=== PATIENT | female | born 1975 | race Caucasian/White ===

== ENCOUNTER 2018-04-23 00:59 | Observation (INO) ==
[2018-04-23 01:44] LABS: Bilirubin,Urine Negative (Negative); Blood,Urine Negative (Negative); Clarity,Urine Clear (Clear); Color,Urine Yellow (Yellow); Glucose,Urine (UA) Normal (Normal); Ketones,Urine Negative (Negative); Leukocyte Esterase,Urine Small (Negative); Nitrite,Urine Negative (Negative); Protein,Urine Negative (Neg-Trace); Urobilinogen,Urine Normal (Normal)
[2018-04-23 01:47] LABS: Bacteria,Urine Few per hpf (None-Few); Hyaline Casts,Urine None Seen per lpf (None-Few); RBC,Urine 0-3 per hpf (0-3); Squamous Epithelial Cell,Urine Many per lpf (None-Few)
[2018-04-23 02:02] LABS: Calcium Oxalate Crystals,Urine Present
[2018-04-23 02:05] LABS: Basophils # 0.1 K/mcL (0.0-0.2); Basophils % 0.6 %; Eosinophils # 0.4 K/mcL (0.0-0.6); Eosinophils % 3.4 %; Hemoglobin 12.8 g/dL (11.5-15.4); Immature Granulocytes % 0.3 % (0-4); Lymphocytes # 2.4 K/mcL (0.6-4.6); Lymphocytes % 22.7 %; Mean Corpuscular HGB Conc 32.8 g/dL (31.6-35.5); Mean Corpuscular Hemoglobin 30.5 pg (28.0-33.3); Mean Corpuscular Volume 92.9 fL (83.0-100.0); Mean Platelet Volume 10.5 fL (9.4-12.4); Monocytes # 0.7 K/mcL (0.0-1.3); Monocytes % 6.1 %; Neutrophils # 7.2 K/mcL (1.6-8.9); Platelet Count 226 K/mcL (140-400); Red Cell Distribution Width 13.2 % (11.5-14.5); Segmented Neutrophils % 66.9 %
[2018-04-23] MEDS ORDERED: *HR* Morphine Immed Rel 30 MG TABLET PO STA (02:17)
[2018-04-23 02:26] LABS: BUN/Creatinine Ratio 32 (6-26); Blood Urea Nitrogen 19 mg/dL (6-20); Calcium 8.6 mg/dL (8.6-10.3); Carbon Dioxide 27 mEq/L (23-29); Chloride 106 mEq/L (98-107); Glucose 84 mg/dL (70-105); Osmolality,Calculated 287 (280-300); Potassium 3.8 mEq/L (3.5-5.1); Sodium 138 mEq/L (136-145); eGFR For Non-African Americans > 60 (> 60)
[2018-04-23 02:27] LABS: Troponin I < 0.03 ng/mL (< 0.04)
--- NOTE | 2018-04-23 02:36 | Emergency Department Note ---
Disposition Clinical Impression: Seizure-like activity Syncope Qualifiers: Syncope type: unspecified Qualified Code(s): R55 - Syncope and collapse Disposition: Admitted As Inpatient Condition: Fair Referrals: Sheba Romero CNP [Primary Care Provider] - Forms: ED Satisfaction Letter General Adult HPI - General Chief complaint: ED Syncope Stated complaint: syncope Time Seen by Provider: 04/23/18 01:00 Source: patient Mode of arrival: ambulatory Limitations: no limitations Nursing Notes Reviewed: Yes Vital Signs Reviewed: Yes - History of Present Illness HPI Narrative: 42-year-old female with significant past medical history of anxiety and depression presenting to the emergency department chief complaint a syncopal episode. Patient states today she got up to across the room and felt lightheaded and weak. She leaned on the side of an arm chair and passed out. Family members beside her tried to catch her but she did hit the back of her head on the ground. After she passed out she had what looked like generalized shaking. Patient woke up and had another episode of syncope after. At that time EMS was called. When EMS arrived patient was alert and oriented 3. At this time patient complains of some posterior head pain but no other pain or concerns. Patient denies any chest pain, shortness of breath or abdominal pain. Pain Scale: 4 - Related Data Home Medications Medication Instructions Recorded Confirmed HydrOXYzine 25 mg PO TID PRN 03/21/17 02/02/18 Mv,Calcium,Min/Iron/Folic/Vitk 1 tab PO DAILY 03/21/17 02/02/18 [Optisource Tablet Chewable] Polyethylene Glycol 3350 [MiraLAX] 17 gm PO DAILY PRN 03/21/17 02/02/18 Pregabalin [Lyrica] 225 mg PO BID 03/21/17 02/02/18 clonazePAM [Klonopin] 1 mg PO BID 03/21/17 02/02/18 traZODone [TraZODone] 50 - 100 mg PO HS 03/21/17 02/02/18 Fluticasone Propionate Nasal 50 mcg NS DAILY 02/02/18 02/02/18 [Flonase] Levomilnacipran HCl [Fetzima] 120 mg PO DAILY 02/02/18 02/02/18 Linaclotide [Linzess] 145 mcg PO DAILY 02/02/18 02/02/18 Loratadine [Claritin] 1 tab PO DAILY 02/02/18 02/02/18 Allergies Allergy/AdvReac Type Severity Reaction Status Date / Time bupropion [From Wellbutrin] Allergy Hives Verified 02/02/18 11:11 NSAIDS (Non-Steroidal AdvReac See Verified 09/10/17 21:43 Anti-Inflamma Comments All systems ED: reviewed and negative except as stated. Constitutional: Denies: fever, chills Eyes: Reports: as per HPI ENT ED: Reports: as per HPI Cardiovascular: Denies: chest pain, palpitations, dyspnea on exertion Respiratory: Denies: cough, dyspnea, wheezes Gastrointestinal: Denies: abdominal pain, nausea, vomiting Genitourinary: Reports: as per HPI Musculoskeletal: Reports: as per HPI Integumentary: Reports: as per HPI Neurological: Reports: as per HPI Psychiatric: Reports: as per HPI Endocrine: Reports: as per HPI Hematological/Lymphatic: Reports: as per HPI Allergic/Immunologic: Reports: as per HPI Past Medical History - Past Medical History Attestation: Yes The following information was validated with the patient. Medical history: Reports: arthritis, DVT, fibromyalgia, GERD, other Surgical history: Reports: , sinus surgery, other Psychiatric history: Reports: anxiety, depression HVAC SERVICE TECHNICIAN history: Reports: no HVAC SERVICE TECHNICIAN history, bilateral tubal ligation, other - Social History Smoking Status: Never smoker Smokeless Tobacco Status: No Alcohol use: Reports: none Drug use: Reports: none Physical Exam - General Limitations: no limitations General appearance: alert, in no apparent distress - Head Head exam: atraumatic, normocephalic, other (Tenderness to palpation over the occiput area) - Eye Eye exam: Present: normal appearance, PERRL, EOMI. Absent: scleral icterus, conjunctival injection - ENT ENT exam: normal exam, mucous membranes moist - Neck Neck exam: Present: normal inspection, full ROM. Absent: tenderness, meningismus - Chest Chest inspection: Present: normal inspection, symmetric chest wall rise. Absent: tenderness, rash - Respiratory Respiratory exam: Present: normal lung sounds bilaterally. Absent: respiratory distress, wheezes - Cardiovascular Cardiovascular exam: Present: regular rate, normal rhythm, normal heart sounds - Abdominal Exam Abdominal exam: Present: soft, Non-Tender. Absent: distention, guarding, rebound - Extremities Exam Extremities exam: Present: normal inspection, full ROM - Neurological Exam Neurological exam: Present: alert, oriented X3 - Psychiatric Psychiatric exam: Present: normal affect, normal mood - Skin Skin exam: Present: warm, intact Course Course Narrative: 42-year-old female presenting after a syncopal episode with seizure-like a ctivity afterwards. At this time patient is alert and oriented 3 and hemodynamically stable. Nonfocal neurological exam. Patient states she did recently start taking BuSpar but no other medication changes. Patient denies any history of seizure-like activity. Denies any other symptoms prior to syncope besides feeling weak and dizzy. At this time will perform basic laboratory analysis along with a CT of the head. Disposition pending results. Patient agrees this plan. - Reevaluation(s) Reevaluation #1: Patient's laboratory analysis benign. Urine analysis within normal limits. Due to patient's 2 episodes of syncope and concern for new onset seizure will plan to admit the patient further observation and workup. At this time patient remains alert and oriented 3 and hemodynamically stable. Patient agrees with this plan. I spoke with the hospitalist mass communications professor Dr. Le who agrees to accept the patient at this time. Vital Signs Temperature 98.2 F 04/23/18 01:04 Pulse Rate 73 04/23/18 01:04 Respiratory Rate 15 04/23/18 01:04 Blood Pressure 118/60 04/23/18 01:04 O2 Sat by Pulse Oximetry 100 04/23/18 01:04 Temperature 98.2 F 04/23/18 01:04 Pulse Rate 82 04/23/18 02:54 Respiratory Rate 14 04/23/18 02:54 Blood Pressure 113/95 04/23/18 02:54 O2 Sat by Pulse Oximetry 100 04/23/18 02:54 Oxygen Delivery Oxygen Delivery Room Air Medical Decision Making - Lab Data Result diagrams: 04/23/18 01:50 04/23/18 01:50 Lab Results 04/23/18 04/23/18 04/23/18 Range/Units 01:30 01:30 01:50 WBC 10.7 (4.3-11.1) K/mcL RBC 4.20 (3.82-4.97) M/mcL Hgb 12.8 (11.5-15.4) g/dL Hct 39.0 (35.3-44.9) % MCV 92.9 (83.0-100.0) fL MCH 30.5 (28.0-33.3) pg MCHC 32.8 (31.6-35.5) g/dL RDW 13.2 (11.5-14.5) % Plt Count 226 (140-400) K/mcL MPV 10.5 (9.4-12.4) fL Immature Gran % 0.3 (0-4) % Seg Neutrophils % 66.9 % Lymphocytes % 22.7 % Monocytes % 6.1 % Eosinophils % 3.4 % Basophils % 0.6 % Neutrophils # 7.2 (1.6-8.9) K/mcL Lymphocytes # 2.4 (0.6-4.6) K/mcL Monocytes # 0.7 (0.0-1.3) K/mcL Eosinophils # 0.4 (0.0-0.6) K/mcL Basophils # 0.1 (0.0-0.2) K/mcL Sodium (136-145) mEq/L Potassium (3.5-5.1) mEq/L Chloride (98-107) mEq/L Carbon Dioxide (23-29) mEq/L BUN (6-20) mg/dL Creatinine (0.60-1.20) mg/dL Est GFR ( Amer) (> 60) Est GFR (Non-Af Amer) (> 60) BUN/Creatinine Ratio (6-26) Glucose (70-105) mg/dL POC Glucose (70-99) mg/dL Calculated Osmolality (280-300) Calcium (8.6-10.3) mg/dL Troponin I (< 0.04) ng/mL Urine Color Yellow (Yellow) Urine Clarity Clear (Clear) Urine pH 6.0 (5.0-8.0) pH Units Ur Specific [place] 1.020 (1.010-1.025) Urine Protein Negative (Neg-Trace) mg/dL Urine Glucose (UA) Normal (Normal) mg/dL Urine Ketones Negative (Negative) mg/dL Urine Blood Negative (Negative) Urine Nitrite Negative (Negative) Urine Bilirubin Negative (Negative) Urine Urobilinogen Normal (Normal) mg/dL Ur Leukocyte Esterase Small H (Negative) Urine Microscopic RBC 0-3 (0-3) per hpf Urine Microscopic WBC 5-15 H (0-3) per hpf Ur Squamous Epith Cells Many H (None-Few) per lpf Calcium Oxalate Crystal Present Urine Bacteria Few (None-Few) per hpf Hyaline Casts None Seen (None-Few) per lpf Urine Test Negative (Negative) 04/23/18 04/23/18 Range/Units 01:50 02:24 WBC (4.3-11.1) K/mcL RBC (3.82-4.97) M/mcL Hgb (11.5-15.4) g/dL Hct (35.3-44.9) % MCV (83.0-100.0) fL MCH (28.0-33.3) pg MCHC (31.6-35.5) g/dL RDW (11.5-14.5) % Plt Count (140-400) K/mcL MPV (9.4-12.4) fL Immature Gran % (0-4) % Seg Neutrophils % % Lymphocytes % % Monocytes % % Eosinophils % % Basophils % % Neutrophils # (1.6-8.9) K/mcL Lymphocytes # (0.6-4.6) K/mcL Monocytes # (0.0-1.3) K/mcL Eosinophils # (0.0-0.6) K/mcL Basophils # (0.0-0.2) K/mcL Sodium 138 (136-145) mEq/L Potassium 3.8 (3.5-5.1) mEq/L Chloride 106 (98-107) mEq/L Carbon Dioxide 27 (23-29) mEq/L BUN 19 (6-20) mg/dL Creatinine 0.59 L (0.60-1.20) mg/dL Est GFR ( Amer) > 60 (> 60) Est GFR (Non-Af Amer) > 60 (> 60) BUN/Creatinine Ratio 32 H (6-26) Glucose 84 (70-105) mg/dL POC Glucose 74 (70-99) mg/dL Calculated Osmolality 287 (280-300) Calcium 8.6 (8.6-10.3) mg/dL Troponin I < 0.03 (< 0.04) ng/mL Urine Color (Yellow) Urine Clarity (Clear) Urine pH (5.0-8.0) pH Units Ur Specific [place] (1.010-1.025) Urine Protein (Neg-Trace) mg/dL Urine Glucose (UA) (Normal) mg/dL Urine Ketones (Negative) mg/dL Urine Blood (Negative) Urine Nitrite (Negative) Urine Bilirubin (Negative) Urine Urobilinogen (Normal) mg/dL Ur Leukocyte Esterase (Negative) Urine Microscopic RBC (0-3) per hpf Urine Microscopic WBC (0-3) per hpf Ur Squamous Epith Cells (None-Few) per lpf Calcium Oxalate Crystal Urine Bacteria (None-Few) per hpf Hyaline Casts (None-Few) per lpf Urine Test (Negative) - EKG Data EKG #1 EKG attestation: Yes I reviewed and interpreted this EKG. EKG results narrative: Sinus rhythm. 72 beats for minute. GA interval 165, QRS 129, QTC 464. No sign of acute ST segment elevation or ischemia. Compared to previous EKG completed on 03/25/2009 no significant changes noted
--- NOTE | 2018-04-23 03:08 | Internal Med History&Physical ---
<Sherin Albarran N - Last Filed: 04/23/18 05:38> Date of Encounter: 04/23/18 Time of Encounter: 03:08 Internal Medicine - H&P: HPI Chief complaint: Syncope Admitted From: Emergency Dept History of present illness: Ms. 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 Presented to the ED via EMS after a witnessed syncopal episode. Patient states that she does not recall this incident; however, it was witnessed by multiple family members. Patient states that she stood up and became dizzy, so she grabbed the arm of a chair. After doing so, she reportedly passed out, and began convulsing in what her family described as "seizure-like" activity. Reportedly fell and hit her head during this syncopal episode. Patient reports that family members stated she was unresponsive immediately after the incident. She estimates that she does not remember approximately 5 minutes including the time immediately before, during, and immediately after this event. Patient reportedly had a second syncopal episode immediately after attempting to get up from the first. Patient reports experiencing dizzy spells associated with tunnel vision and lightheadedness, during which she sometimes feels like she is going to pass out. She states that these have been occurring for approximately 6 weeks, and says they are occurring with increasing frequency. She also reports noticing frequent headaches over this same period of time, and has noted worsening diplopia and blurred vision. She does have a history of migraine headaches; however, she sta radha that the headaches that she has been experiencing recently are different, and are not associated with photophobia. She states that these dizzy episodes are triggered more frequently with changes in position, though they do occur sometimes while she is at rest. She also reports feeling generally weaker recently. With the exception of a double ear and sinus infection approximately one month ago, patient denies any recent illnesses. Her only new medication is buspirone, which she again taking approximately 1 month ago. Patient was seen and evaluated at the bedside while in the emergency department. She denied any acute complaints or concerns at that time. Patient stated to ED staff that she did not feel safe going on due to concerns for repeat syncope. She was admitted to the hospitalist service for observation and further workup of her dizzy spells and recent syncope. Past Med Surg Social Fam HX - Past Medical History Medical history: arthritis, DVT, fibromyalgia, GERD, other Additional medical history: chronic back pain. chronic headaches. hypermobility-type Court[place] Psychiatric history: anxiety, depression - Past Surgical History Surgical History: , sinus surgery, other, bariatric surgery Additional surgical history: left wrist x 3. gastric bypass. l ctr. r ctr. t&a - Social History Smoking Status: Never smoker Smokeless Tobacco Status: No Alcohol use: none Drug use: none - Family History Mother Age: 73 Living Status: Still Living Hx Family Cardiac Disorders: Yes (TIA, HTN) Hx Family Respiratory Disorders: Yes (COPD) Hx Family Endocrine Disorder: Yes (hypothyroidism) Hx Family Musculoskeletal Disorders: Yes (osteoporsis) Hx Family Neurologic Disorders: Yes (Dementia) Hx Family Psychosocial Disorders: Yes (depression and anxiety) Father Living Status: Age at : 56 Cause of : suicide Hx Family Psychosocial Disorders: Yes (PTSD) Brother Hx Family Psychosocial Disorders: Yes (depression) Internal Medicine - H&P: Meds Mv,Calcium,Min/Iron/Folic/Vitk [Optisource Tablet Chewable] 1 tab PO DAILY 03/21/17 [History] Pregabalin [Lyrica] 225 mg PO BID 03/21/17 [History] RX: HydrOXYzine 25 mg PO TID PRN 03/21/17 [History] RX: Polyethylene Glycol 3350 [MiraLAX] 17 gm PO DAILY PRN 03/21/17 [History] RX: clonazePAM [Klonopin] 1 mg PO BID 03/21/17 [History] RX: traZODone [TraZODone] 50 - 100 mg PO HS 03/21/17 [History] Fluticasone Propionate Nasal [Flonase] 50 mcg NS DAILY 02/02/18 [History] Levomilnacipran HCl [Fetzima] 120 mg PO DAILY 02/02/18 [History] Linaclotide [Linzess] 145 mcg PO DAILY 02/02/18 [History] RX: Loratadine [Claritin] 1 tab PO DAILY 02/02/18 [History] Allergy/AdvReac Type Severity Reaction Status Date / Time bupropion [From Wellbutrin] Allergy Hives Verified 02/02/18 11:11 NSAIDS (Non-Steroidal AdvReac See Verified 09/10/17 21:43 Anti-Inflamma Comments All Systems PM: A 10-system review of systems was performed and is negative for pertinent findings except as documented above in the HPI. - EENT Eyes: as per HPI, blurry vision, change in vision, diplopia, tunnel vision Ears: no tinnitus Nose, mouth and throat: no post-nasal drip, no sinus pain, no sinus pressure - Cardiovascular Cardiovascular ROS IM: syncope, no chest pain, no dyspnea, no palpitations - Respiratory Respiratory: no cough, no dyspnea on exertion, no wheezing, no chest congestion - Gastrointestinal Gastrointestinal: constipation, diarrhea, dyspepsia, heartburn, nausea, no change in bowel habits, no vomiting - Genitourinary Genitourinary: dysuria, urinary frequency, urinary urgency - Musculoskeletal Musculoskeletal ROS IM: joint swelling - Neurological Neurological ROS: dizziness, headache(s), weakness - Psychiatric Psychiatric: anxiety, depression - Constitutional Vitals: Temp Pulse Resp BP Pulse Ox 98.2 F 82 14 113/95 100 04/23/18 01:04 04/23/18 02:54 04/23/18 02:54 04/23/18 02:54 04/23/18 02:54 Exam: GENERAL: Well-developed, well-nourished adult female in no acute distress. HEENT: Atraumatic and normocephalic. No scleral icterus present. Tympanic membranes are intact without erythema. Oral mucosa is moist. NECK: Soft and nontender. No thyromegaly or lymphadenopathy. CARDIOVASCULAR: Regular rate and rhythm. S1 and S2 present. No murmurs, gallops, or rubs. RESPIRATORY: CTA bilaterally. Chest rises and falls symmetrically with respiration. No accessory muscle use noted. GASTROINTESTINAL: Active bowel sounds 4 quadrants. Abdomen is soft. Patient reports discomfort to palpation in the left lower quadrant. EXTREMITIES: Bilateral lower extremity edema that is worse on the left. SKIN: Warm, dry, and intact. NEUROLOGIC: Alert and oriented 3. Patient is cooperative with exam and answers questions appropriately. No apparent focal deficits PSYCHIATRIC: Appropriate mood and affect. Internal Med - H&P Results - Labs CBC & Chem 7: 04/23/18 01:50 04/23/18 01:50 Labs: Short CBC 04/23/18 Range/Units 01:50 WBC 10.7 (4.3-11.1) K/mcL Hgb 12.8 (11.5-15.4) g/dL Hct 39.0 (35.3-44.9) % Plt Count 226 (140-400) K/mcL Neutrophils # 7.2 (1.6-8.9) K/mcL BMP 04/23/18 01:50 Sodium 138 Potassium 3.8 Chloride 106 Carbon Dioxide 27 BUN 19 Creatinine 0.59 L Glucose 84 Calcium 8.6 Cardiac Enzymes 04/23/18 Range/Units 01:50 Troponin I < 0.03 (< 0.04) ng/mL Urine 04/23/18 Range/Units 01:30 Urine Color Yellow (Yellow) Urine Clarity Clear (Clear) Urine pH 6.0 (5.0-8.0) pH Units Ur Specific [place] 1.020 (1.010-1.025) Urine Protein Negative (Neg-Trace) mg/dL Urine Glucose (UA) Normal (Normal) mg/dL - Impressions ITS Impressions Head CT 04/23/18 01:11 IMPRESSION: No acute intracranial abnormality. D/ / Tian Curry MD / Tian Curry MD Interpreting Provider: Tian Curry MD - Assessment and plan (1) Syncope Current Visit: Yes Status: Acute Assessment and plan: Unclear etiology. Patient reports worsening dizzy spells over the last month and a half with episodes increasing in frequency. She also reports diplopia and blurred vision, along with increased headaches, over the same period of time. Head CT was negative for any acute intracranial process. - Telemetry monitoring - Obtain orthostatic blood pressure and vital signs - Non-contrast brain MRI - Tilt table test - Echocardiogram - Will hold clonazepam and trazodone due to potential worsening of dizziness - Neurology consult for recommendations and possible continued workup on an outpatient basis Qualifiers: Syncope type: unspecified Qualified Code(s): R55 - Syncope and collapse (2) Dysuria Current Visit: Yes Status: Acute Assessment and plan: Patient complains of dysuria, urinary frequency, and urgency. Urinalysis performed in the ED demonstrated small leukocyte esterase 5-15 white blood cells, and many squamous epithelial cells. - Obtain clean catch urine sample for culture (3) DVT prophylaxis Current Visit: Yes Status: Acute Assessment and plan: - Heparin 5000units SQ Q8H - Time Spent With Patient Total time spent is greater than 50% in coordination of care (as documented) at patient's floor/unit and/or counseling patient: Karan Walker - Last Filed: 04/23/18 06:01> Date of Encounter: 04/23/18 All Systems PM: A 10-system review of systems was performed and is negative for pertinent findings except as documented above in the HPI. - Constitutional Vitals: Temp Pulse Resp BP Pulse Ox 98.1 F 81 16 123/83 98 04/23/18 04:11 04/23/18 04:11 04/23/18 04:11 04/23/18 04:11 04/23/18 04:39 Internal Med - H&P Results - Labs CBC & Chem 7: 04/23/18 01:50 04/23/18 01:50 Labs: Short CBC 04/23/18 Range/Units 01:50 WBC 10.7 (4.3-11.1) K/mcL Hgb 12.8 (11.5-15.4) g/dL Hct 39.0 (35.3-44.9) % Plt Count 226 (140-400) K/mcL Neutrophils # 7.2 (1.6-8.9) K/mcL BMP 04/23/18 01:50 Sodium 138 Potassium 3.8 Chloride 106 Carbon Dioxide 27 BUN 19 Creatinine 0.59 L Glucose 84 Calcium 8.6 Cardiac Enzymes 04/23/18 Range/Units 01:50 Troponin I < 0.03 (< 0.04) ng/mL Urine 04/23/18 Range/Units 01:30 Urine Color Yellow (Yellow) Urine Clarity Clear (Clear) Urine pH 6.0 (5.0-8.0) pH Units Ur Specific [place] 1.020 (1.010-1.025) Urine Protein Negative (Neg-Trace) mg/dL Urine Glucose (UA) Normal (Normal) mg/dL - Impressions ITS Impressions Head CT 04/23/18 01:11 IMPRESSION: No acute intracranial abnormality. D/ / Tian Curry MD / Tian Curry MD Interpreting Provider: Tian Crury MD - Assessment and plan (1) Syncope Current Visit: Yes Status: Acute Qualifiers: Syncope type: unspecified Qualified Code(s): R55 - Syncope and collapse (2) DVT prophylaxis Current Visit: Yes Status: Acute (3) Dysuria Current Visit: Yes Status: Acute - Time Spent With Patient Total time spent is greater than 50% in coordination of care (as documented) at patient's floor/unit and/or counseling patient: - Attending Attestation I performed a history and physical exam of the patient and discussed management with the resident. I reviewed the resident's note and agree with the documented findings and plan of care. Jeimy Jerez is a 42 year old woman who reports a history of fibromyalgia presenting with headaches of increasing frequency and severity over the past month and a half as well as dizziness and seeing blackness. She is brought to the ER today after suffering what appears to have been a syncopal episode. This was accompanied by diffuse jerking activity which was suspected to be a seizure episode by the witnessing family members. She reports no recollection of the incident. She does acknowledge becoming more and more dizzy every time she stands up and requiring support. Her headaches are non-focal. No palpitations reported. No lateralization of her gait although it is slow. Her speech is soft and slow as well. No focal deficits on exam. Will monitor on telemetry. Check orthostatics. She will benefit from tilt table testing. The new onset headaches and blacking out warrant brain imaging and neurology f/u. Hold any sedating medications that are part of her home meds for now. AGUSTIN OCAMPO.
--- NOTE | 2018-04-23 03:31 | Emergency Department Note ---
Disposition Clinical Impression: Seizure-like activity Syncope Qualifiers: Syncope type: unspecified Qualified Code(s): R55 - Syncope and collapse Disposition: Admitted As Inpatient Condition: Fair General Adult HPI - General Chief complaint: ED Syncope Stated complaint: syncope Time Seen by Provider: 04/23/18 01:00 Source: patient Mode of arrival: ambulatory Limitations: no limitations Nursing Notes Reviewed: Yes Vital Signs Reviewed: Yes - History of Present Illness Pain Scale: 4 - Related Data Home Medications Medication Instructions Recorded Confirmed HydrOXYzine 25 mg PO TID PRN 03/21/17 02/02/18 Mv,Calcium,Min/Iron/Folic/Vitk 1 tab PO DAILY 03/21/17 02/02/18 [Optisource Tablet Chewable] Polyethylene Glycol 3350 [MiraLAX] 17 gm PO DAILY PRN 03/21/17 02/02/18 Pregabalin [Lyrica] 225 mg PO BID 03/21/17 02/02/18 clonazePAM [Klonopin] 1 mg PO BID 03/21/17 02/02/18 traZODone [TraZODone] 50 - 100 mg PO HS 03/21/17 02/02/18 Fluticasone Propionate Nasal 50 mcg NS DAILY 02/02/18 02/02/18 [Flonase] Levomilnacipran HCl [Fetzima] 120 mg PO DAILY 02/02/18 02/02/18 Linaclotide [Linzess] 145 mcg PO DAILY 02/02/18 02/02/18 Loratadine [Claritin] 1 tab PO DAILY 02/02/18 02/02/18 Allergies Allergy/AdvReac Type Severity Reaction Status Date / Time bupropion [From Wellbutrin] Allergy Hives Verified 02/02/18 11:11 NSAIDS (Non-Steroidal AdvReac See Verified 09/10/17 21:43 Anti-Inflamma Comments Constitutional: Denies: fever, chills Eyes: Reports: as per HPI ENT ED: Reports: as per HPI Cardiovascular: Denies: chest pain, palpitations, dyspnea on exertion Respiratory: Denies: cough, dyspnea, wheezes Gastrointestinal: Denies: abdominal pain, nausea, vomiting Genitourinary: Reports: as per HPI Musculoskeletal: Reports: as per HPI Integumentary: Reports: as per HPI Neurological: Reports: as per HPI Psychiatric: Reports: as per HPI Endocrine: Reports: as per HPI Hematological/Lymphatic: Reports: as per HPI Allergic/Immunologic: Reports: as per HPI Past Medical History - Past Medical History Medical history: Reports: arthritis, DVT, fibromyalgia, GERD, other Surgical history: Reports: , sinus surgery, other Psychiatric history: Reports: anxiety, depression 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 SUPERVISOR history, bilateral tubal ligation, other - Social History Smoking Status: Never smoker Smokeless Tobacco Status: No Alcohol use: Reports: none Drug use: Reports: none Physical Exam - General Limitations: no limitations General appearance: alert, in no apparent distress Course Vital Signs Temperature 98.2 F 04/23/18 01:04 Pulse Rate 73 04/23/18 01:04 Respiratory Rate 15 04/23/18 01:04 Blood Pressure 118/60 04/23/18 01:04 O2 Sat by Pulse Oximetry 100 04/23/18 01:04 Temperature 98.2 F 04/23/18 01:04 Pulse Rate 82 04/23/18 02:54 Respiratory Rate 14 04/23/18 03:42 Blood Pressure 127/80 04/23/18 03:42 O2 Sat by Pulse Oximetry 100 04/23/18 02:54 Oxygen Delivery Oxygen Delivery Room Air Medical Decision Making - Medical Records Medical records reviewed: Yes I reviewed the patient's medical records. - Lab Data Lab results reviewed: Yes I reviewed the patient's lab results. Result diagrams: 04/23/18 01:50 04/23/18 01:50 Lab Results 04/23/18 04/23/18 04/23/18 Range/Units 01:30 01:30 01:50 WBC 10.7 (4.3-11.1) K/mcL RBC 4.20 (3.82-4.97) M/mcL Hgb 12.8 (11.5-15.4) g/dL Hct 39.0 (35.3-44.9) % MCV 92.9 (83.0-100.0) fL MCH 30.5 (28.0-33.3) pg MCHC 32.8 (31.6-35.5) g/dL RDW 13.2 (11.5-14.5) % Plt Count 226 (140-400) K/mcL MPV 10.5 (9.4-12.4) fL Immature Gran % 0.3 (0-4) % Seg Neutrophils % 66.9 % Lymphocytes % 22.7 % Monocytes % 6.1 % Eosinophils % 3.4 % Basophils % 0.6 % Neutrophils # 7.2 (1.6-8.9) K/mcL Lymphocytes # 2.4 (0.6-4.6) K/mcL Monocytes # 0.7 (0.0-1.3) K/mcL Eosinophils # 0.4 (0.0-0.6) K/mcL Basophils # 0.1 (0.0-0.2) K/mcL Sodium (136-145) mEq/L Potassium (3.5-5.1) mEq/L Chloride (98-107) mEq/L Carbon Dioxide (23-29) mEq/L BUN (6-20) mg/dL Creatinine (0.60-1.20) mg/dL Est GFR ( Amer) (> 60) Est GFR (Non-Af Amer) (> 60) BUN/Creatinine Ratio (6-26) Glucose (70-105) mg/dL POC Glucose (70-99) mg/dL Calculated Osmolality (280-300) Calcium (8.6-10.3) mg/dL Troponin I (< 0.04) ng/mL Urine Color Yellow (Yellow) Urine Clarity Clear (Clear) Urine pH 6.0 (5.0-8.0) pH Units Ur Specific [place] 1.020 (1.010-1.025) Urine Protein Negative (Neg-Trace) mg/dL Urine Glucose (UA) Normal (Normal) mg/dL Urine Ketones Negative (Negative) mg/dL Urine Blood Negative (Negative) Urine Nitrite Negative (Negative) Urine Bilirubin Negative (Negative) Urine Urobilinogen Normal (Normal) mg/dL Ur Leukocyte Esterase Small H (Negative) Urine Microscopic RBC 0-3 (0-3) per hpf Urine Microscopic WBC 5-15 H (0-3) per hpf Ur Squamous Epith Cells Many H (None-Few) per lpf Calcium Oxalate Crystal Present Urine Bacteria Few (None-Few) per hpf Hyaline Casts None Seen (None-Few) per lpf Urine Test Negative (Negative) 04/23/18 04/23/18 Range/Units 01:50 02:24 WBC (4.3-11.1) K/mcL RBC (3.82-4.97) M/mcL Hgb (11.5-15.4) g/dL Hct (35.3-44.9) % MCV (83.0-100.0) fL MCH (28.0-33.3) pg MCHC (31.6-35.5) g/dL RDW (11.5-14.5) % Plt Count (140-400) K/mcL MPV (9.4-12.4) fL Immature Gran % (0-4) % Seg Neutrophils % % Lymphocytes % % Monocytes % % Eosinophils % % Basophils % % Neutrophils # (1.6-8.9) K/mcL Lymphocytes # (0.6-4.6) K/mcL Monocytes # (0.0-1.3) K/mcL Eosinophils # (0.0-0.6) K/mcL Basophils # (0.0-0.2) K/mcL Sodium 138 (136-145) mEq/L Potassium 3.8 (3.5-5.1) mEq/L Chloride 106 (98-107) mEq/L Carbon Dioxide 27 (23-29) mEq/L BUN 19 (6-20) mg/dL Creatinine 0.59 L (0.60-1.20) mg/dL Est GFR ( Amer) > 60 (> 60) Est GFR (Non-Af Amer) > 60 (> 60) BUN/Creatinine Ratio 32 H (6-26) Glucose 84 (70-105) mg/dL POC Glucose 74 (70-99) mg/dL Calculated Osmolality 287 (280-300) Calcium 8.6 (8.6-10.3) mg/dL Troponin I < 0.03 (< 0.04) ng/mL Urine Color (Yellow) Urine Clarity (Clear) Urine pH (5.0-8.0) pH Units Ur Specific [place] (1.010-1.025) Urine Protein (Neg-Trace) mg/dL Urine Glucose (UA) (Normal) mg/dL Urine Ketones (Negative) mg/dL Urine Blood (Negative) Urine Nitrite (Negative) Urine Bilirubin (Negative) Urine Urobilinogen (Normal) mg/dL Ur Leukocyte Esterase (Negative) Urine Microscopic RBC (0-3) per hpf Urine Microscopic WBC (0-3) per hpf Ur Squamous Epith Cells (None-Few) per lpf Calcium Oxalate Crystal Urine Bacteria (None-Few) per hpf Hyaline Casts (None-Few) per lpf Urine Test (Negative) - Radiology Data Radiology results reviewed: Yes I reviewed the patient's radiology results. Head CT 04/23/18 01:11 IMPRESSION: No acute intracranial abnormality. D/ / Tian Curry MD / Tian Curry MD Interpreting Provider: Tian Curry MD - EKG Data EKG #1 EKG attestation: Yes I reviewed and interpreted this EKG. EKG results narrative: EKG shows a normal sinus rhythm with ventricular rate is 72. No ST segment elevation or depression. No arrhythmia or ectopy. Normal EKG. Attestation Statement - Attestation Attestation: I, Miguel Strickland MD, personally evaluated this patient and discussed their management with the resident physician. I reviewed the resident's note and agree with the documented findings, medical decision making, and plan of care. 42-year-old female presents to the emergency department after a witnessed s yncopal episode at home. Patient states that she was standing talking to her mother when she became very weak and faint and dizzy and lightheaded and felt like she was going to pass out. She sat down on the arm of a chair the symptoms did not improve and then she passed out falling across the chair. She reportedly had some shaking and jerking all over for a brief time. She then seemed to start waking up higher had a second similar episode and passed out a second time as her boyfriend was trying to get her out of the chair and the floor. She did hit the back of her head. She was reportedly unconscious for about 2 minutes. After she woke up she was mildly confused but was oriented and able to talk. She complains of pain in the back of her head and hurt her back. She denies any chest pain or shortness of breath or palpitations with the episode or prior to the episode. On examination patient is a well-developed obese female in no acute distress. She is alert and oriented 3. There is no cyanosis or diaphoresis. Chest is nontender to palpation. Breath sounds are clear and equal bilaterally. Heart regular rate and rhythm. Abdomen soft and nontender with normal bowel sounds. No gross focal neurological deficits. Labs reviewed. EKG shows normal sinus rhythm with a rate of 72 in no acute changes. Head CT negative. The hospitalist, Dr. Le, was consulted and accepted admission of the patient.
[2018-04-23] MEDS ORDERED: Naloxone 0.4 MG/ML INJ IVP PRN (04:31)
[2018-04-23] MEDS ORDERED: Ringers Solution, Lactated 1,000 ML IVC SCH (05:15)
[2018-04-23] MEDS: *HR* Heparin 5,000 UNIT/ML VIAL SQ SCH ×2 (05:50→17:40)
[2018-04-23] MEDS: traMADol 50 MG TABLET PO PRN ×2 (05:50→13:41)
[2018-04-23] MEDS ORDERED: Pregabalin 75 MG CAPSULE PO SCH (09:00)
--- NOTE | 2018-04-23 10:02 | Internal Med History&Physical ---
Date of Encounter: 04/23/18 Time of Encounter: 09:54 Internal Medicine - H&P: HPI Chief complaint: syncope Admitted From: Home Plans for Post Hospital Care: Home History of present illness: Ms. 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 She was watching TV at 11:30 PM when she got up from her couch to walk to her mother when she suddenly felt light headed. everything "black out". She caught herself on the arm of a chair and then does not remember anything from that point. Her family saw her go into a seizure like activity which lasted for 5 mintues. She did not have any head trauma, tongue biting, loss of bowel or bladder function. She regained consciousness and was reported to be confused. Patient has never had a syncopal episode in the past but has had lightheadedness when getting up form sitting position. For the past couple weeks. She was recently started on baclofen and busprione two weeks ago. She also has hx of ehler's danlos and takes klonopin, lyrica, hydroxyzine, trazodone at home. She denies hx of CVA, seziures. She has a history of bariatric surgery. She also reports new onset headaches that are located in the front or back without laterality throbbing in nature, without association with N/V but does reports photophobia and phonophobia. Past Med Surg Social Fam HX - Past Medical History Medical history: arthritis, DVT, fibromyalgia, GERD, other Additional medical history: chronic back pain. chronic headaches. hypermobility-type Court-Danlos Psychiatric history: anxiety, depression - Past Surgical History Surgical History: , sinus surgery, other, bariatric surgery Additional surgical history: left wrist x 3. gastric bypass. l ctr. r ctr. t&a - Social History Smoking Status: Never smoker Smokeless Tobacco Status: No Alcohol use: none Drug use: none - Family History Mother Age: 73 Living Status: Still Living Hx Family Cardiac Disorders: Yes (TIA, HTN) Hx Family Respiratory Disorders: Yes (COPD) Hx Family Endocrine Disorder: Yes (hypothyroidism) Hx Family Musculoskeletal Disorders: Yes (osteoporsis) Hx Family Neurologic Disorders: Yes (Dementia) Hx Family Psychosocial Disorders: Yes (depression and anxiety) Father Living Status: Age at : 56 Cause of : suicide Hx Family Psychosocial Disorders: Yes (PTSD) Brother Hx Family Psychosocial Disorders: Yes (depression) Internal Medicine - H&P: Meds HydrOXYzine 25 mg PO TID PRN 03/21/17 [History] Mv,Calcium,Min/Iron/Folic/Vitk [Optisource Tablet Chewable] 1 tab PO DAILY 03/21/17 [History] Polyethylene Glycol 3350 [MiraLAX] 17 gm PO DAILY PRN 03/21/17 [History] Pregabalin [Lyrica] 225 mg PO BID 03/21/17 [History] clonazePAM [Klonopin] 1 mg PO BID 03/21/17 [History] traZODone [TraZODone] 50 - 100 mg PO HS 03/21/17 [History] Fluticasone Propionate Nasal [Flonase] 50 mcg NS DAILY 02/02/18 [History] Levomilnacipran HCl [Fetzima] 120 mg PO DAILY 02/02/18 [History] Linaclotide [Linzess] 145 mcg PO DAILY 02/02/18 [History] Loratadine [Claritin] 1 tab PO DAILY 02/02/18 [History] Allergy/AdvReac Type Severity Reaction Status Date / Time bupropion [From Wellbutrin] Allergy Hives Verified 02/02/18 11:11 NSAIDS (Non-Steroidal AdvReac See Verified 09/10/17 21:43 Anti-Inflamma Comments All Systems PM: A 10-system review of systems was performed and is negative for pertinent findings except as documented above in the HPI. - Constitutional Constitutional: no chills, no fever(s), no night sweats - EENT Eyes: photophobia, no change in vision, no discharge, no pain Ears: no ear discharge, no ear pain, no tinnitus Nose, mouth and throat: no dysphagia, no nasal discharge, no neck pain, no sore throat - Cardiovascular Cardiovascular ROS IM: lightheadedness, syncope, no chest pain, no diaphoresis, no dyspnea, no palpitations - Respiratory Respiratory: no cough, no dyspnea, no wheezing, no excessive phlegm production - Gastrointestinal Gastrointestinal: no abdominal pain, no diarrhea, no hematemesis, no hematochezia, no melena, no nausea, no vomiting - Genitourinary Genitourinary: no change in urinary stream, no dysuria, no flank pain, no hematuria - Musculoskeletal Musculoskeletal ROS IM: myalgias, no numbness, no tingling - Integumentary Integumentary IM: no rash, no unusual bruising - Neurological Neurological ROS: convulsions, no confusion, no focal weakness, no numbness, no tingling, no tremor(s) - Hematologic/Lymphatic Hematologic/Lymphatic: easy bruising - Constitutional Vitals: Temp Pulse Resp BP Pulse Ox 97.7 F 76 16 97/67 98 04/23/18 07:43 04/23/18 07:43 04/23/18 07:43 04/23/18 07:43 04/23/18 08:09 Exam: General: pleasant, without distress HEENT: Head atraumatic, normocephalic, EOMI, PERRL, absent ear discharge or trauma, Moist Mucous Membranes,uvula deviated to the left Neck: nontender to palpation, absent lymphadenopathy, Cardiovascualr: Regular rate and rhythm with no murmur, absent gallops or rubs, absent pedal edema, radial pulses 2 out of 4 Lungs: Clear to auscultation bilaterally, not in respiratory distress Abdomen: Soft nontender, nondistended positive bowel sounds, absent hepatomegaly Skin: warm and dry, absent rash, absent open wounds and nodules. bruise on right singer MSK: absent clubbing, cyanosis, joints without swelling Psych: good insight and judgment,, depressed mood Internal Med - H&P Results - Labs CBC & Chem 7: 04/23/18 01:50 04/23/18 01:50 Labs: Short CBC 04/23/18 Range/Units 01:50 WBC 10.7 (4.3-11.1) K/mcL Hgb 12.8 (11.5-15.4) g/dL Hct 39.0 (35.3-44.9) % Plt Count 226 (140-400) K/mcL Neutrophils # 7.2 (1.6-8.9) K/mcL BMP 04/23/18 01:50 Sodium 138 Potassium 3.8 Chloride 106 Carbon Dioxide 27 BUN 19 Creatinine 0.59 L Glucose 84 Calcium 8.6 Cardiac Enzymes 04/23/18 Range/Units 01:50 Troponin I < 0.03 (< 0.04) ng/mL Urine 04/23/18 Range/Units 01:30 Urine Color Yellow (Yellow) Urine Clarity Clear (Clear) Urine pH 6.0 (5.0-8.0) pH Units Ur Specific [place] 1.020 (1.010-1.025) Urine Protein Negative (Neg-Trace) mg/dL Urine Glucose (UA) Normal (Normal) mg/dL - Impressions ITS Impressions Head CT 04/23/18 01:11 IMPRESSION: No acute intracranial abnormality. D/ / Tian Curry MD / Tian Curry MD Interpreting Provider: Tian Curry MD - Assessment and plan (1) Syncope Current Visit: Yes Status: Acute Qualifiers: Syncope type: unspecified Qualified Code(s): R55 - Syncope and collapse (2) DVT prophylaxis Current Visit: Yes Status: Acute (3) Dysuria Current Visit: Yes Status: Acute - Time Spent With Patient Total time spent is greater than 50% in coordination of care (as documented) at patient's floor/unit and/or counseling patient:
--- NOTE | 2018-04-23 10:10 | Neurology - Consult Note ---
<Edy Eduardo - Last Filed: 04/23/18 10:08> Date of Encounter: 04/23/18 Time of Encounter: 10:08 Assessment and Plan (1) Syncope Current Visit: Yes Status: Acute patient presents with syncope neuro exam non-focal and nonlateralizing Patient's history indicates she likely has orthostatic hypotension as her syncopal episode was preceded by lightheadedness. She also has had similar symptoms in the past without passing out. She was just started on baclofen and buspirone 2 weeks ago which at that time she was having lightheadedness and these medications could have worsened her symptoms. 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 The patient also has a history of gastric bypass which may decrease her B12, B6 uptake. Her hemoglobin is within normal limits and her MCV is 92. On exam there is no findings of numbness, or decreased proprioception. Unlikely she has a deficiency. She she continues to have lightheadedness at this time while sitting up. CT head was negative MRI and echocardiogram as ordered by primary team. Due to her seeking episode we will order an EEG. Most likely this is orthostatic hypotension/autonomic dysfunction from medication as well as history of Court-Danlos. Qualifiers: Syncope type: unspecified Qualified Code(s): R55 - Syncope and collapse (2) DVT prophylaxis Current Visit: Yes Status: Acute History of Present Illness Chief complaint: syncope HPI: Ms. 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 She was watching TV at 11:30 PM when she got up from her couch to walk to her mother when she suddenly felt light headed. everything "black out". She caught herself on the arm of a chair and then does not remember anything from that point. Her family saw her go into a seizure like activity which lasted for 5 mintues. She did not have any head trauma, tongue biting, loss of bowel or bladder function. She regained consciousness and was reported to be confused. Patient has never had a syncopal episode in the past but has had lightheadedness when getting up form sitting position. For the past couple weeks. She was recently started on baclofen and busprione two weeks ago. She also has hx of ehler's danlos and takes klonopin, lyrica, hydroxyzine, trazodone at home. She denies hx of CVA, seziures. She has a history of bariatric surgery. She also reports new onset headaches that are located in the front or back without laterality throbbing in nature, without association with N/V but does reports photophobia and phonophobia. Past Med Surg Social Fam HX - Past Medical History Medical history: arthritis, DVT, fibromyalgia, GERD, other Additional medical history: chronic back pain. chronic headaches. hypermobility-type Court-Danlos Psychiatric history: anxiety, depression - Past Surgical History Surgical History: , sinus surgery, other, bariatric surgery Additional surgical history: left wrist x 3. gastric bypass. l ctr. r ctr. t&a - Social History Smoking Status: Never smoker Smokeless Tobacco Status: No Alcohol use: none Drug use: none - Family History Mother Age: 73 Living Status: Still Living Hx Family Cardiac Disorders: Yes (TIA, HTN) Hx Family Respiratory Disorders: Yes (COPD) Hx Family Endocrine Disorder: Yes (hypothyroidism) Hx Family Musculoskeletal Disorders: Yes (osteoporsis) Hx Family Neurologic Disorders: Yes (Dementia) Hx Family Psychosocial Disorders: Yes (depression and anxiety) Father Living Status: Age at : 56 Cause of : suicide Hx Family Psychosocial Disorders: Yes (PTSD) Brother Hx Family Psychosocial Disorders: Yes (depression) Medications and Allergies HydrOXYzine 25 mg PO TID PRN 03/21/17 [History] Mv,Calcium,Min/Iron/Folic/Vitk [Optisource Tablet Chewable] 1 tab PO DAILY 03/21/17 [History] Polyethylene Glycol 3350 [MiraLAX] 17 gm PO DAILY PRN 03/21/17 [History] Pregabalin [Lyrica] 225 mg PO BID 03/21/17 [History] clonazePAM [Klonopin] 1 mg PO BID 03/21/17 [History] traZODone [TraZODone] 50 - 100 mg PO HS 03/21/17 [History] Fluticasone Propionate Nasal [Flonase] 50 mcg NS DAILY 02/02/18 [History] Levomilnacipran HCl [Fetzima] 120 mg PO DAILY 02/02/18 [History] Linaclotide [Linzess] 145 mcg PO DAILY 02/02/18 [History] Loratadine [Claritin] 1 tab PO DAILY 02/02/18 [History] Allergy/AdvReac Type Severity Reaction Status Date / Time bupropion [From Wellbutrin] Allergy Hives Verified 02/02/18 11:11 NSAIDS (Non-Steroidal AdvReac See Verified 09/10/17 21:43 Anti-Inflamma Comments All Systems: The remainder of the systems were reviewed and are negative Review of Systems: Constitutional: Denies fever, chills HEENT: Denies headache, trauma, blurry vision, eye discharge, ear pain, ear discharge neck pain, sore throat, rhinorrhea Heart: Denies chest pain palpitations, LE edema Lungs: Denies shortness of breath cough Abdomen: Denies abdominal pain nausea vomiting diarrhea MSK: Denies back pain, falls, joint pain Kidney: Denies dysuria, hematuria Skin: Denies rash, ulcers Neuro: Denies numbness and tingling. reports syncope Psych: reports axniety, depression Physical Examination - Vital Signs Vital Signs: Initial Vital Signs Temp Pulse Resp BP Pulse Ox 98.2 F 73 15 118/60 100 04/23/18 01:04 04/23/18 01:04 04/23/18 01:04 04/23/18 01:04 04/23/18 01:04 - Exam Exam: General: pleasant, without distress HEENT: Head atraumatic, normocephalic, EOMI, PERRL, absent ear discharge or trauma, Moist Mucous Membranes,uvula deviated to the left Neck: nontender to palpation, absent lymphadenopathy, Cardiovascualr: Regular rate and rhythm with no murmur, absent gallops or rubs, absent pedal edema, radial pulses 2 out of 4 Lungs: Clear to auscultation bilaterally, not in respiratory distress Abdomen: Soft nontender, nondistended positive bowel sounds, absent hepatomegaly Skin: warm and dry, absent rash, absent open wounds and nodules. bruise on right singer MSK: absent clubbing, cyanosis, joints without swelling Psych: good insight and judgment,, depressed mood - Neurologic Detailed motor examination: full strength in all major muscle groups Motor examination - right side: 4/5: deltoids, biceps, triceps, wrist flexion, wrist extension, field investigator, hip flexors, tibialis Anterior, quadriceps, toe extension (EHL), plantarflexion Motor examination - left side: 4/5: deltoids, biceps, triceps, wrist flexion, wrist extension, hip flexors, field investigator, quadriceps, tibialis Anterior, toe extension (EHL), plantarflexion Detailed sensory examination: intact, light touch Reflex and gait examination: other (patient become lightheaded when trying to situp) Reflexes: Biceps: 2+, Triceps: 2+, Brachioradialis: 2+, Patella: 2+, Achilles: 2+ Mental Status Examination: awake, alert, oriented to person, oriented to place, oriented to time, follows commands appropriately, answers questions appropriately, no agnosia, no aphasia, no aproxia Cranial nerve examination: PERRL, EOMI, visual corey intact, corneal reflexes brisk symmetrically, sensory to face intact, mastication intact, no facial asymmetry is present, no dysarthria, hearing is intact symmetrically, soft palate elevates bilaterally upon phonation, gag reflex intact, flexes SCM and trapezius muscles symmetrically with full power, tongue protrudes midline, no atrophy or facial fasiculations present Cerebellar examination: no dysmetria, performs finger to nose and heel to singer symmetrically without ataxia, no difficulty with rapid alternating movements Results - Laboratory Findings CBC and BMP: 04/23/18 01:50 04/23/18 01:50 Abnormal lab findings: Abnormal lab results Creatinine 0.59 mg/dL (0.60-1.20) L 04/23/18 01:50 BUN/Creatinine Ratio 32 (6-26) H 04/23/18 01:50 Ur Leukocyte Esterase Small (Negative) H 04/23/18 01:30 Urine Microscopic WBC 5-15 per hpf (0-3) H 04/23/18 01:30 Ur Squamous Epith Cells Many per lpf (None-Few) H 04/23/18 01:30 Consult Discharge Plan - Plan Referrals: Sheba Romero, ATHLETIC MONITOR [Primary Care Provider] - <Sajan Oliva I - Last Filed: 04/23/18 16:21> Date of Encounter: 04/23/18 Assessment and Plan (1) Syncope Current Visit: Yes Status: Acute Pt was seen and examined, my medical decision was reviewed with the Resident Physician, I agree with the documented findings, disposition and treatment plas as described except to the extent set forth below. No focal findings on neurological examination MRI of the brain is also negative I suspect patient had this convulsive syncope though it does sound like a seizure and look like a seizure but in fact it is due to hypoperfusion of the brain and is not a true epileptic event. Suspect her symptoms are related to autonomic dysfunction and is likely multifactorial. Suggest increasing fluid intake will follow the EEG results no focal findings on examination no indication to start her on any antiepileptic medication at this time Discussed in patient with detail Sajan Oliva MD Qualifiers: Syncope type: unspecified Qualified Code(s): R55 - Syncope and collapse History of Present Illness HPI: Ms. Jerez is a 42 year old female All Systems: The remainder of the systems were reviewed and are negative Physical Examination - Vital Signs Vital Signs: Initial Vital Signs Temp Pulse Resp BP Pulse Ox 98.2 F 73 15 118/60 100 04/23/18 01:04 04/23/18 01:04 04/23/18 01:04 04/23/18 01:04 04/23/18 01:04 Results - Laboratory Findings CBC and BMP: 04/23/18 01:50 04/23/18 01:50 Abnormal lab findings: Abnormal lab results Creatinine 0.59 mg/dL (0.60-1.20) L 04/23/18 01:50 BUN/Creatinine Ratio 32 (6-26) H 04/23/18 01:50 Ur Leukocyte Esterase Small (Negative) H 04/23/18 01:30 Urine Microscopic WBC 5-15 per hpf (0-3) H 04/23/18 01:30 Ur Squamous Epith Cells Many per lpf (None-Few) H 04/23/18 01:30
[2018-04-23] MEDS: (Levomilnacipran Hcl [Fetzima] 120 MG) PO SCH (13:36)
[2018-04-23] MEDS: Loratadine 10 MG TABLET PO SCH (13:36)
[2018-04-23] MEDS: (Linaclotide [Linzess] 145 MCG) PO SCH (13:36)
--- NOTE | 2018-04-23 15:56 | Internal Med Progress Note ---
Hospitalist Progress Note - Encounter Date of Encounter: 04/23/18 Time of Encounter: 15:53 - Subjective Interval History: Patient was seen and examined bedside patient denied anymore syncopal episodes she still having some dizziness with the positional change she denied any chest pain patient did mention lately she has been having a lot of stress and anxiety at home.. Her psychiatrist Dr. Lindsay did add new medication for anxiety - Exam Vitals: Temp Pulse Resp BP Pulse Ox 98.0 F 75 16 114/72 99 04/23/18 13:23 04/23/18 13:23 04/23/18 13:23 04/23/18 13:23 04/23/18 13:23 Exam: Gen: Alert, awake, Oriented to time,place and person Chest: Diminished breath sounds B/L, No wheezing, No crackles, No rales Heart: S1S2+ RRR No murmurs Abd: Soft, NT, BS +, No organomegaly Ext: No edema, pulses are palpable, No calf tenderness Neuro : Benign findings Skin: No rash. - Assessment and Plan (1) Syncope Current Visit: Yes Status: Acute Assessment and Plan: Mostly vasovagal / ortho stat however her presentation is concerning for seizure activity too MRI of Brain - no acute infarction tilt table test showed evidence of Ortho static response continue IV hydration will adjust her blood pressure medications echocardiogram showed preserved LVEF no significant valvular dysfunction (2) DVT prophylaxis Current Visit: Yes Status: Acute Assessment and Plan: Heparin 5000units SQ Q8H (3) Anxiety Current Visit: Yes Status: Acute Assessment and Plan: Resumed home medications recommend to follow with psychiatrist as an outpatient - Time Spent with Patient Total time spent is greater than 50% in coordination of care (as documented) at patient's floor/unit and/or counseling patient: Internal Medicine: Result - Labs CBC & Chem 7: 04/23/18 01:50 04/23/18 01:50 Labs: Short CBC 04/23/18 Range/Units 01:50 WBC 10.7 (4.3-11.1) K/mcL Hgb 12.8 (11.5-15.4) g/dL Hct 39.0 (35.3-44.9) % Plt Count 226 (140-400) K/mcL Neutrophils # 7.2 (1.6-8.9) K/mcL BMP 04/23/18 01:50 Sodium 138 Potassium 3.8 Chloride 106 Carbon Dioxide 27 BUN 19 Creatinine 0.59 L Glucose 84 Calcium 8.6 Cardiac Enzymes 04/23/18 Range/Units 01:50 Troponin I < 0.03 (< 0.04) ng/mL Urine 04/23/18 Range/Units 01:30 Urine Color Yellow (Yellow) Urine Clarity Clear (Clear) Urine pH 6.0 (5.0-8.0) pH Units Ur Specific Crescent 1.020 (1.010-1.025) Urine Protein Negative (Neg-Trace) mg/dL Urine Glucose (UA) Normal (Normal) mg/dL - Impressions Impressions Head CT 04/23/18 01:11 IMPRESSION: No acute intracranial abnormality. D/ / Tian Curry MD / Tian Curry MD Interpreting Provider: Tian Curry MD Brain MRI 04/23/18 05:10 IMPRESSION: No acute intracranial abnormality. No acute infarct. D/ / Ole Dale MD / Ole Dale MD Interpreting Provider: Ole Dale MD Echocardiogram 04/23/18 05:10 Impressions: LVEF 65%. Normal LV chamber size, wall thickness and function. Normal right ventricular structure and function. No significant valvular dysfunction. No pulmonary hypertension. Left Ventricular Wall Motion: Rest Echo Findings All wall segments showed normal motion. Findings: Study Quality * Technically adequate exam. ECG Findings * Normal sinus rhythm. Left Ventricle * Normal LV chamber size, wall thickness and function. * Normal left ventricular diastolic function. * LVEF 65%. Right Ventricle * Normal right ventricular structure and function. Left Atrium * Normal left atrial size. Right Atrium * Normal right atrial size. Interatrial Septum * Interatrial septum not well evaluated. * No evidence of PFO by color Doppler. Aortic Valve * Trileaflet aortic valve. * No aortic regurgitation. * No aortic stenosis. Mitral Valve * Normal mitral valve structure and function. * No mitral regurgitation. * No mitral stenosis. Tricuspid Valve * Normal tricuspid valve structure and function. * No tricuspid stenosis. * Trace tricuspid regurgitation. * Trace tricuspid regurgitation. * Estimated RVSP is 26 mmHg. * Estimated RA pressure is 10 mmHg. * No pulmonary hypertension. Pulmonic Valve * Pulmonic valve not well visualized. * No pulmonic regurgitation. * No pulmonic stenosis. Aorta * Normally sized aortic root. Pericardium * The pericardium appears normal. IVC * Normal IVC dimensions and inspiratory collapse. Consult Discharge Plan - Plan Referrals: Sheba Romero, [employer] LOADER AND [employer]LOADER [Primary Care Provider] - (1) Syncope Qualifiers: Syncope type: unspecified Qualified Code(s): R55 - Syncope and collapse
[2018-04-23] MEDS: 0.9 % Sodium Chloride 1,000 ML IVC SCH (17:41)
[2018-04-23] MEDS: Acetaminophen 325 MG TABLET PO PRN (19:19)
[2018-04-24] MEDS ORDERED: Ondansetron 4 MG/2 ML VIAL IVP PRN (02:17)
[2018-04-24] MEDS: 0.9 % Sodium Chloride 1,000 ML IVC SCH (05:33)
[2018-04-24] MEDS: *HR* Heparin 5,000 UNIT/ML VIAL SQ SCH (05:34)
--- NOTE | 2018-04-24 07:46 | Neurology Progress Note ---
<Edy Eduardo - Last Filed: 04/24/18 08:50> Date of Encounter: 04/24/18 Time of Encounter: 08:50 Assessment and Plan (1) Convulsive syncope Current Visit: Yes Status: Acute Patient likely had convulsive syncope from cerebral hypoperfusion 2nd to orthostatic hypotension/autonomic dysfunction MRI is negative, EEG is negative as well. Recommend that patient discontinue baclofen and need reevaluation by psyciatrist as buspirone also causes dizziness. consult PT/OT for placement. no further testing needed from neurology perspective. Subjective Principal diagnosis: convulsive syncope Interval history: no acute events overnight. Patient reports she continues to feel dizzy. Objective - Constitutional Vitals: Temp Pulse Resp BP Pulse Ox 98.0 F 79 18 109/68 98 04/24/18 06:36 04/24/18 06:36 04/24/18 06:36 04/24/18 06:36 04/24/18 06:36 - Neurological Exam Motor Examination: Present: full strength in all major muscle groups Motor examination - right side: 4/5: deltoids, biceps, triceps, wrist flexion, wrist extension, caramel coloring operator, hip flexors, tibialis Anterior, quadriceps, toe extension (EHL), plantarflexion Motor examination - left side: 4/5: deltoids, biceps, triceps, wrist flexion, wrist extension, hip flexors, caramel coloring operator, quadriceps, tibialis Anterior, toe extension (EHL), plantarflexion Sensation intact: Present: intact, light touch Reflex and gait examination: other (patient become lightheaded when trying to situp) Mental Status Examination: Present: awake, alert, oriented to person, oriented to place, oriented to time, follows commands appropriately, answers questions appropriately, no agnosia, no aphasia, no aproxia Cranial nerve examination: Present: PERRL, EOMI, visual corey intact, corneal reflexes brisk symmetrically, sensory to face intact, mastication intact, no facial asymmetry is present, no dysarthria, hearing is intact symmetrically, soft palate elevates bilaterally upon phonation, gag reflex intact, flexes SCM and trapezius muscles symmetrically with full power, tongue protrudes midline, no atrophy or facial fasiculations present Cerebellar examination: Present: no dysmetria, performs finger to nose and heel to singer symmetrically without ataxia, no difficulty with rapid alternating movements Results - Laboratory Findings CBC and BMP: 04/23/18 01:50 04/23/18 01:50 Abnormal lab findings: Abnormal lab results Creatinine 0.59 mg/dL (0.60-1.20) L 04/23/18 01:50 BUN/Creatinine Ratio 32 (6-26) H 04/23/18 01:50 Ur Leukocyte Esterase Small (Negative) H 04/23/18 01:30 Urine Microscopic WBC 5-15 per hpf (0-3) H 04/23/18 01:30 Ur Squamous Epith Cells Many per lpf (None-Few) H 04/23/18 01:30 Consult Discharge Plan - Plan Referrals: Sheba Romero, FIELD [employer]C [Primary Care Provider] - (Follow up appt web requested.) <Sajan Oliva I - Last Filed: 04/24/18 09:03> Date of Encounter: 04/24/18 Assessment and Plan (1) Syncope Current Visit: Yes Status: Acute Qualifiers: Syncope type: unspecified Qualified Code(s): R55 - Syncope and collapse (2) Convulsive syncope Current Visit: Yes Status: Acute Pt was seen and examined, my medical decision was reviewed with the Resident Physician, I agree with the documented findings, disposition and treatment plas as described except to the extent set forth below Patient is occasionally having some dizziness I suggest increase ambulation no further workup indicated at this time so far all workup has been negative okay to discharge from neurology standpoint Sajan Oliva MD Objective - Constitutional Vitals: Temp Pulse Resp BP Pulse Ox 98.0 F 79 18 109/68 98 04/24/18 06:36 04/24/18 06:36 04/24/18 06:36 04/24/18 06:36 04/24/18 06:36 Results - Laboratory Findings CBC and BMP: 04/23/18 01:50 04/23/18 01:50 Abnormal lab findings: Abnormal lab results Creatinine 0.59 mg/dL (0.60-1.20) L 04/23/18 01:50 BUN/Creatinine Ratio 32 (6-26) H 04/23/18 01:50 Ur Leukocyte Esterase Small (Negative) H 04/23/18 01:30 Urine Microscopic WBC 5-15 per hpf (0-3) H 04/23/18 01:30 Ur Squamous Epith Cells Many per lpf (None-Few) H 04/23/18 01:30
[2018-04-24] MEDS: (Linaclotide [Linzess] 145 MCG) PO SCH (09:02)
[2018-04-24] MEDS: Acetaminophen 325 MG TABLET PO PRN (09:02)
[2018-04-24] MEDS: Loratadine 10 MG TABLET PO SCH (09:02)
[2018-04-24] MEDS: (Levomilnacipran Hcl [Fetzima] 120 MG) PO SCH (09:03)
--- NOTE | 2018-04-24 09:49 | Discharge Summary ---
- NOTES TO OUTPATIENT PROVIDER Notes to Outpatient Provider: Follow up with PCP in one week. follow-up with psychiatrist in one week. started on new medication Midodrine for your low blood pressure and orthostatic hypotension Orders not resulted at time of discharge: Pending orders 04/23/18 06:05 Culture,Urine [RM] Routine Date of Encounter: 04/24/18 Time of Encounter: 09:47 - Discharge Diagnosis (1) Syncope Priority: Primary Status: Acute Qualifiers: Syncope type: unspecified Qualified Code(s): R55 - Syncope and collapse (2) Orthostatic hypotension Priority: Secondary Status: Acute (3) Anxiety Priority: Secondary Status: Acute Hospital course: Ms. Jerez is a 42 year old female with a history of fibromyalgia, diverticulosis, irritable bowel disease, hypermobility-type Court Danlos, and GERD pt presented to the ED via EMS after a witnessed syncopal episode. Patient states that she does not recall this incident; however, it was witnessed by multiple family members. Patient states that she stood up and became dizzy, so she grabbed the arm of a chair. After doing so, she reportedly passed out, and began convulsing in what her family described as "seizure-like" activity. Reportedly fell and hit her head during this syncopal episode. Patient reports that family members stated she was unresponsive immediately after the incident. Patient was admitted in the hospital and placed her on potline monitor. She had an extensive neurological workup done. CT of the head did not show any acute intracranial abnormality. MRI of the head did not show any acute infarction. Patient was evaluated by neurologist and who recommend EEG which came back is negative for any seizure activity as per neurology. Her echocardiogram showed preserved LVEF no significant valvular dysfunction. She did have till test which showed evidence of Ortho static response. So at this point I started her on Midodrine 5 mg PO b.i.d. and also educated her about orthostatic hypotension. Also recommend to f/u with her psychiatrist for anxiety. Also recommend to stop taking Flexeril - Time Spent with Patient Total time spent providing and/or coordinating discharge services: - Discharge Medications Prescriptions: Ondansetron ODT [Zofran ODT] 4 mg SL Q8HR PRN #15 tab.rapdis PRN Reason: Nausea Midodrine [ProAmatine] 5 mg PO BID #60 tablet Home Medications: HydrOXYzine 25 mg PO TID PRN 03/21/17 [History] Mv,Calcium,Min/Iron/Folic/Vitk [Optisource Tablet Chewable] 1 tab PO DAILY 03/21/17 [History] Polyethylene Glycol 3350 [MiraLAX] 17 gm PO DAILY PRN 03/21/17 [History] Pregabalin [Lyrica] 225 mg PO BID 03/21/17 [History] traZODone [TraZODone] 50 - 100 mg PO HS 03/21/17 [History] Fluticasone Propionate Nasal [Flonase] 50 mcg NS DAILY 02/02/18 [History] Levomilnacipran HCl [Fetzima] 120 mg PO DAILY 02/02/18 [History] Linaclotide [Linzess] 145 mcg PO DAILY 02/02/18 [History] Loratadine [Claritin] 1 tab PO DAILY 02/02/18 [History] Midodrine [ProAmatine] 5 mg PO BID #60 tablet 04/24/18 [Rx] Ondansetron ODT [Zofran ODT] 4 mg SL Q8HR PRN #15 tab.rapdis 04/24/18 [Rx] clonazePAM [Klonopin] 1 mg PO BID PRN #0 04/24/18 [Rx] Allergies/Adverse Reactions: Allergy/AdvReac Type Severity Reaction Status Date / Time bupropion [From Wellbutrin] Allergy Hives Verified 02/02/18 11:11 NSAIDS (Non-Steroidal AdvReac See Verified 09/10/17 21:43 Anti-Inflamma Comments Date of admission: 04/23/18 03:30 Primary care physician: Sheba Romero CNP Consults: 04/23/18 04:54 Consult to Neurology [CONS] Routine Consulting Provider: [facility] Reason for Consult: Patient reports dizzy spells associated with tunnel vision and potential syncope that are increasing in frequency over the last 6 weeks. She presented after an episode that resulted in syncope. She notes increased frequency of headaches over this same time period, as well as increased diplopia and blurry vision. Time Notified: 04:55 Call Completed: No 04/23/18 14:58 Consult to Interpret Exam [CONS] Routine Consulting Provider: Sajan Oliva I Consult to Interpret Exam: Interpret EEG 04/24/18 08:58 Consult to Physical Therapy [CONS] Routine Comment: Evaluate, develop and implement POC Reason for Consult: dizziness, syncope Does patient have active BEDREST order?: No Is patient medically & hemodynamically stable?: Yes Patient assessed for mobility or mobilized this visit?: No - Constitutional Vitals: Temp Pulse Resp BP Pulse Ox 98.0 F 79 18 109/68 98 04/24/18 06:36 04/24/18 06:36 04/24/18 06:36 04/24/18 06:36 04/24/18 06:36 General appearance: Present: A&O X 3 Exam: Gen: Alert, awake, Oriented to time,place and person Chest: Diminished breath sounds B/L, No wheezing, No crackles, No rales Heart: S1S2+ RRR No murmurs Abd: Soft, NT, BS +, No organomegaly Ext: No edema, pulses are palpable, No calf tenderness Neuro : Benign findings Skin: No rash. - Patient Status Disposition: Home Health Service Condition: Fair - Discharge Instructions Instructions: Syncope (GEN), Hypotension (DC) Follow Up With: Sheba Romero ORNAMENTAL METAL WORKER APPRENTICE [Primary Care Provider] - (Follow up appt web requested.) - Diet and Activity Activity: increase activity as tolerated Diet: low salt diet
[2018-04-24 10:51] VITALS: BP 113/78
--- NOTE | 2018-04-24 14:03 | EEG/EMG/Oth Biometrics Report ---
EEG Procedure Report EEG Procedure: Routine EEG Procedure Note: This is a routine 21 channel digital EEG performed utilizing 10- 20 international electrode placement system. FINDINGS: Patient has a predominant waking background frequency that is average voltage 8 to 10 Hertz alpha activity in the posterior region, normal amplitude symmetrical over the both hemispheres reactive to eyes opening and closing record continued to show alpha activity intermixed with some theta off and on, no abnormal activity recorded, predominantly no evidence of any spike wave discharges or any lateralizing abnormalities, some intermittent slowing noted, Photic stimulation and hyperventilation did not produce any convulsive response. Intermittent EMG artifacts were noted. Stage II sleep was not achieved. Impression: Normal awake drowsy electroencephalogram. No epileptiform discharges or any other paroxysmal activities noted. ( Please note that normal EEG does not exclude the diagnosis of seizures or epilepsy, if clinical suspicion is high consider 48 hours ambulatory EEG clinical correlation is suggested)
--- NOTE | 2018-04-24 20:03 | Electrocardiograph Report ---
[address] [place] [address] Test Date: 2018-04-23 Pat Name: Jeimy Jerez Department: EXAM4 Room: 3B11 Gender: F [employer] Assistant Manager: : [id number] Requested By: Genesis Camargo Order Number: [id number] Reading MD: Le Mcleod Measurements Intervals [place] Rate: 72 P: 22 DC: 165 QRS: 38 QRSD: 129 T: 54 QT: 424 QTc: 464 Interpretive Statements Sinus rhythm Nonspecific intraventricular conduction delay Electronically Signed On 04-24-2018 20:01:57 EST by Le Mcleod
== END 2018-04-24 12:29 | disposition home health service (06) ==
LOC: 3BNU 00:59 → EMEROOARM 00:59 → 3BNU 04:00
PROVIDERS: ADMIT Internal Medicine; ATTEND Internal Medicine